=== PATIENT | female | born 1950 | race Caucasian/White ===

== ENCOUNTER 2018-11-22 22:43 | Observation (INO) ==
[2018-11-22] MEDS ORDERED: ONDANSETRON 4 MG/2 ML VIAL ONE (23:03)
[2018-11-22] MEDS ORDERED: ONDANSETRON 4 MG/2 ML VIAL IM STA (23:09)
[2018-11-22] MEDS ORDERED: SODIUM CHLORIDE 0.9% 1,000 ML IV STA ×2 (23:09→23:15)
[2018-11-22] MEDS ORDERED: ONDANSETRON 4 MG/2 ML VIAL IV STA (23:11)
[2018-11-22 23:44] LABS: Basophils # 0.1 10*3/uL (0.0-0.2); Basophils % 0.7 % (0.0-0.8); Eosinophils # 0.1 10*3/uL (0.0-0.87); Eosinophils % 1.2 % (0.00-10.9); Hematocrit 42.5 VOL% (35.7-47.0); Hemoglobin 13.4 GM/DL (12.0-16.0); Immature Granulocytes % 0.4 %; Immature Granulocytes Absolute 0.04 #; Lymphocytes # 1.6 10*3/uL (1.4-4.0); Lymphocytes % 16.4 % (21.3-54.2); Mean Corpuscular HGB Conc 31.5 GM/DL (32-36); Mean Corpuscular Volume 82.4 FL (87-102); Monocytes % 6.4 % (1.7-12.7); Neutrophils % 74.9 % (38.7-73.9); Platelet Count 229 T/CUMM (130-400); Red Blood Count 5.16 MC/CUMM (3.8-5.5); Red Cell Distribution Width 14.1 % (9.3-17.3); White Blood Count 9.8 T/CUMM (4-12)
[2018-11-23 00:15] LABS: Alanine Aminotransferase 18 U/L (13-56); Albumin 3.8 G/DL (3.4-5.0); Alkaline Phosphatase 147 U/L (45-117); Aspartate Amino Transferase 24 U/L (0-37); Blood Urea Nitrogen 13 MG/DL (7-18); Calcium 9.2 MG/DL (8.5-10.1); Glucose 266 MG/DL (74-106); Osmolality,Calculated 287.4 MOS/KG (273-304); Total Protein 7.7 G/DL (6.4-8.3)
[2018-11-23 00:31] LABS: Apearance,Urine CLOUDY (Clear); Bacteria,Urine Occasional /HPF (Few); Bilirubin,Urine Negative (Negative); Blood, Urine Small mg/dL (Negative); Glucose,Urine (UA) >=500 mg/dL (Negative); Hyaline Casts,Urine 291 /LPF (0-3); Ketones,Urine Negative (Negative); Mucus,Urine Moderate /LPF (Occasional); Nitrite,Urine Negative (Negative); Protein,Urine 100 MG/DL; RBC,Urine 5 /HPF (0-4); Squamous Epithelial Cell,Urine Occasional /HPF (0-10); Urine Color Yellow (Yellow); Urine Specific Gravity 1.016 (1.001-1.035); Urine Urobilinogen < 2.0 EU/DL (0.2-1.0); WBC,Urine 5 /HPF (0-6)
[2018-11-23] MEDS ORDERED: DEXTROSE 50% 25 GM/50 ML VIAL IV PRN (00:39)
[2018-11-23] MEDS ORDERED: ONDANSETRON 4 MG/2 ML VIAL IV PRN (00:39)
[2018-11-23] MEDS ORDERED: GLUCAGON 1 MG VIAL IM PRN (00:39)
[2018-11-23] MEDS: DEXTROSE 5% NACL 0.9% 1,000 ML IV SCH ×2 (02:01→09:58)
[2018-11-23] MEDS ORDERED: MECLIZINE 25 MG TABLET PO PRN (07:53)
[2018-11-23 08:54] LABS: Calcium 7.8 MG/DL (8.5-10.1); Osmolality,Calculated 286.1 MOS/KG (273-304)
[2018-11-23] MEDS: LOSARTAN 50 MG TABLET PO SCH ×2 (08:54→20:53)
[2018-11-23] MEDS: ASPIRIN EC 81 MG TABLET PO SCH (08:54)
[2018-11-23] MEDS: PANTOPRAZOLE 40 MG TABLET PO SCH (08:54)
[2018-11-23] MEDS: ROSUVASTATIN 20 MG TABLET PO SCH (08:54)
[2018-11-23] MEDS: FUROSEMIDE 20 MG TABLET PO SCH (08:54)
[2018-11-23] MEDS: DOCUSATE SODIUM 100 MG CAPSULE PO SCH ×2 (08:54→20:52)
[2018-11-23] MEDS: METOCLOPRAMIDE 10 MG TABLET PO SCH ×4 (08:54→20:52)
[2018-11-23] MEDS ORDERED: PANTOPRAZOLE 40 MG VIAL IV SCH (09:00)
[2018-11-23] MEDS ORDERED: GABAPENTIN 300 MG CAPSULE PO SCH (09:00)
[2018-11-23] MEDS: ACETAMINOPHEN 325 MG TABLET PO PRN (09:59)
[2018-11-23] MEDS: INSULIN LISPRO 100 UNIT/ML SUBCUT SCH ×3 (11:28→20:51)
[2018-11-23] MEDS ORDERED: INSULIN ASPART PROTAMINE/ASPART 70/30 100 UNIT/ML SUBCUT SCH (11:30)
[2018-11-23] MEDS: GABAPENTIN 300 MG CAPSULE PO SCH (12:08)
[2018-11-23] MEDS: SODIUM CHLORIDE 0.9% 1,000 ML IV SCH (17:17)
[2018-11-23] MEDS: CILOSTAZOL 50 MG TABLET PO SCH (17:18)
[2018-11-23] MEDS: INSULIN GLARGINE 100 UNIT/ML SUBCUT SCH (20:52)
[2018-11-23] MEDS: GABAPENTIN 600 MG TABLET PO SCH (20:53)
[2018-11-23] MEDS: DOXEPIN 10 MG CAPSULE PO SCH (20:53)
[2018-11-23] MEDS: rOPINIRole 1 MG TABLET PO SCH (20:53)
[2018-11-24] MEDS: SODIUM CHLORIDE 0.9% 1,000 ML IV SCH ×2 (00:38→12:29)
[2018-11-24] MEDS: INSULIN LISPRO 100 UNIT/ML SUBCUT SCH ×4 (09:27→22:59)
[2018-11-24] MEDS: ROSUVASTATIN 20 MG TABLET PO SCH (09:27)
[2018-11-24] MEDS: LOSARTAN 50 MG TABLET PO SCH ×2 (09:28→23:00)
[2018-11-24] MEDS: DOCUSATE SODIUM 100 MG CAPSULE PO SCH ×2 (09:28→23:00)
[2018-11-24] MEDS: PANTOPRAZOLE 40 MG TABLET PO SCH (09:28)
[2018-11-24] MEDS: FUROSEMIDE 20 MG TABLET PO SCH (09:28)
[2018-11-24] MEDS: CILOSTAZOL 50 MG TABLET PO SCH ×2 (09:28→16:30)
[2018-11-24] MEDS: ASPIRIN EC 81 MG TABLET PO SCH (09:28)
[2018-11-24] MEDS: METOCLOPRAMIDE 10 MG TABLET PO SCH ×4 (09:28→22:59)
[2018-11-24] MEDS: INSULIN ASPART PROTAMINE/ASPART 70/30 100 UNIT/ML SUBCUT SCH ×3 (11:34→16:30)
[2018-11-24] MEDS: GABAPENTIN 300 MG CAPSULE PO SCH (12:29)
[2018-11-24] MEDS: DOXEPIN 10 MG CAPSULE PO SCH (22:58)
[2018-11-24] MEDS: rOPINIRole 1 MG TABLET PO SCH (22:58)
[2018-11-24] MEDS: GABAPENTIN 600 MG TABLET PO SCH (22:59)
[2018-11-24] MEDS: INSULIN GLARGINE 100 UNIT/ML SUBCUT SCH (22:59)
[2018-11-24] MEDS: ACETAMINOPHEN 325 MG TABLET PO PRN (23:00)
[2018-11-25] MEDS: ROSUVASTATIN 20 MG TABLET PO SCH (09:29)
[2018-11-25] MEDS: CILOSTAZOL 50 MG TABLET PO SCH ×2 (09:29→16:42)
[2018-11-25] MEDS: PANTOPRAZOLE 40 MG TABLET PO SCH (09:29)
[2018-11-25] MEDS: ASPIRIN EC 81 MG TABLET PO SCH (09:29)
[2018-11-25] MEDS: FUROSEMIDE 20 MG TABLET PO SCH (09:29)
[2018-11-25] MEDS: METOCLOPRAMIDE 10 MG TABLET PO SCH ×3 (09:30→16:42)
[2018-11-25] MEDS: INSULIN ASPART PROTAMINE/ASPART 70/30 100 UNIT/ML SUBCUT SCH ×3 (09:30→16:42)
[2018-11-25] MEDS: DOCUSATE SODIUM 100 MG CAPSULE PO SCH (09:30)
[2018-11-25] MEDS: LOSARTAN 50 MG TABLET PO SCH (09:30)
[2018-11-25] MEDS: INSULIN LISPRO 100 UNIT/ML SUBCUT SCH ×3 (09:30→16:42)
[2018-11-25] MEDS ORDERED: LINACLOTIDE 145 MCG CAPSULE PO SCH (11:30)
[2018-11-25] MEDS: GABAPENTIN 300 MG CAPSULE PO SCH (12:45)
[2018-11-25 16:51] VITALS: BP 104/50
== END 2018-11-25 17:03 | disposition home or self-care (01) ==
LOC: EDBD → EDUNIT# → N.ED 22:43 → N.EDINP 22:43 → N.5E 11-23 00:59
PROVIDERS: ADMIT Family Medicine; ATTEND Family Medicine

== ENCOUNTER 2019-04-10 23:00 | Inpatient (IN) ==
[2019-04-11] MEDS ORDERED: SODIUM CHLORIDE 0.9% 500 ML IV STA (00:27)
[2019-04-11] MEDS ORDERED: ONDANSETRON 4 MG/2 ML VIAL IV ONE (00:27)
[2019-04-11 01:20] LABS: Basophils # 0.1 10*3/uL (0.0-0.2); Basophils % 0.7 % (0.0-0.8); Eosinophils # 0.1 10*3/uL (0.0-0.87); Eosinophils % 0.6 % (0.00-10.9); Hematocrit 44.4 VOL% (35.7-47.0); Hemoglobin 13.9 GM/DL (12.0-16.0); Immature Granulocytes % 0.7 %; Immature Granulocytes Absolute 0.07 #; Lymphocytes # 1.2 10*3/uL (1.4-4.0); Lymphocytes % 12.7 % (21.3-54.2); Mean Corpuscular HGB Conc 31.3 GM/DL (32-36); Mean Corpuscular Volume 79.1 FL (87-102); Mean Platelet Volume 10.9 FL (9.6-12.0); Monocytes % 4.9 % (1.7-12.7); Neutrophils % 80.4 % (38.7-73.9); Platelet Count 191 T/CUMM (130-400); Red Blood Count 5.61 MC/CUMM (3.8-5.5); Red Cell Distribution Width 14.5 % (9.3-17.3); White Blood Count 9.3 T/CUMM (4-12)
[2019-04-11 01:37] LABS: Bilirubin,Total 0.8 MG/DL (0.2-1.0); Calcium 9.4 MG/DL (8.5-10.1); Osmolality,Calculated 288.8 MOS/KG (273-304); Total Protein 8.2 G/DL (6.4-8.3)
[2019-04-11] MEDS ORDERED: MAGNESIUM SULF RIDER 2 GM in PREMIX 1 EACH IV STA (01:53)
[2019-04-11] MEDS ORDERED: cefTRIAXone 1,000 MG in SODIUM CHLORIDE 0.9% 100 ML IV STA (02:21)
[2019-04-11 04:02] LABS: Apearance,Urine Slightly Hazy (Clear); Bilirubin,Urine Negative (Negative); Blood, Urine Small mg/dL (Negative); Glucose,Urine (UA) >=500 mg/dL (Negative); Ketones,Urine 80 mg/dL (Negative); Mucus,Urine Occasional /LPF (Occasional); Nitrite,Urine Positive (Negative); Protein,Urine Negative; RBC,Urine 4 /HPF (0-4); Squamous Epithelial Cell,Urine Occasional /HPF (0-10); Urine Color Yellow (Yellow); Urine Specific Gravity 1.023 (1.001-1.035); Urine Urobilinogen < 2.0 EU/DL (0.2-1.0); WBC,Urine 6 /HPF (0-6)
[2019-04-11] MEDS ORDERED: DEXTROSE 10% 250 ML BAG IV PRN (04:10)
[2019-04-11] MEDS ORDERED: GLUCAGON 1 MG VIAL IM PRN (04:10)
[2019-04-11] MEDS: SODIUM CHLORIDE 0.9% 1,000 ML IV SCH ×3 (04:47→22:07)
[2019-04-11] MEDS ORDERED: INFLUENZA VIRUS VACCINE 0.5 ML SYRINGE IM ONE (05:10)
[2019-04-11] MEDS ORDERED: PNEUMOCOCCAL VACCINE (13 VALENT) 0.5 ML SYRINGE IM ONE (05:12)
[2019-04-11] MEDS ORDERED: INSULIN REGULAR 100 UNIT/ML SUBCUT SCH (07:30)
[2019-04-11] MEDS: ONDANSETRON 4 MG/2 ML VIAL IV PRN (08:49)
[2019-04-11] MEDS: ENOXAPARIN 40 MG/0.4 ML SYRINGE SUBCUT SCH (08:49)
[2019-04-11] MEDS: PANTOPRAZOLE 40 MG TABLET PO SCH (08:52)
[2019-04-11] MEDS: DOCUSATE SODIUM 100 MG CAPSULE PO SCH ×2 (08:52→21:15)
[2019-04-11] MEDS ORDERED: tiZANidine 4 MG TABLET PO PRN (09:30)
[2019-04-11] MEDS: LINACLOTIDE 145 MCG CAPSULE PO SCH (10:06)
[2019-04-11] MEDS: CLOPIDOGREL 75 MG TABLET PO SCH (10:07)
[2019-04-11] MEDS: FUROSEMIDE 20 MG TABLET PO SCH (10:07)
[2019-04-11] MEDS: ASPIRIN EC 81 MG TABLET PO SCH (10:07)
[2019-04-11] MEDS: atenoloL 50 MG TABLET PO SCH (10:07)
[2019-04-11] MEDS: GABAPENTIN 300 MG CAPSULE PO SCH ×2 (10:07→15:27)
[2019-04-11] MEDS: INSULIN LISPRO 100 UNIT/ML SUBCUT SCH ×5 (12:18→22:09)
[2019-04-11] MEDS: cilostazoL 50 MG TABLET PO SCH (17:23)
[2019-04-11] MEDS: rOPINIRole 1 MG TABLET PO SCH (21:15)
[2019-04-11] MEDS: SIMVASTATIN 40 MG TABLET PO SCH (21:15)
[2019-04-12 05:36] LABS: Basophils # 0.1 10*3/uL (0.0-0.2); Basophils % 0.8 % (0.0-0.8); Eosinophils # 0.2 10*3/uL (0.0-0.87); Eosinophils % 2.7 % (0.00-10.9); Hematocrit 35.2 VOL% (35.7-47.0); Hemoglobin 10.7 GM/DL (12.0-16.0); Immature Granulocytes % 0.5 %; Immature Granulocytes Absolute 0.03 #; Lymphocytes # 1.4 10*3/uL (1.4-4.0); Lymphocytes % 22.4 % (21.3-54.2); Mean Corpuscular HGB Conc 30.4 GM/DL (32-36); Mean Corpuscular Volume 80.7 FL (87-102); Mean Platelet Volume 11.2 FL (9.6-12.0); Monocytes % 7.3 % (1.7-12.7); Neutrophils % 66.3 % (38.7-73.9); Platelet Count 170 T/CUMM (130-400); Red Blood Count 4.36 MC/CUMM (3.8-5.5); Red Cell Distribution Width 14.6 % (9.3-17.3); White Blood Count 6.3 T/CUMM (4-12)
[2019-04-12 05:59] LABS: Alanine Aminotransferase 18 U/L (13-56); Albumin 3.1 G/DL (3.4-5.0); Alkaline Phosphatase 103 U/L (45-117); Aspartate Amino Transferase 19 U/L (0-37); Bilirubin,Total < 0.39 MG/DL (0.2-1.0); Blood Urea Nitrogen 16 MG/DL (7-18); Calcium 7.9 MG/DL (8.5-10.1); Estimated Glom Filtration Rate 61 ML/MIN; Glucose 288 MG/DL (74-106); Osmolality,Calculated 294.1 MOS/KG (273-304); Total Protein 6.3 G/DL (6.4-8.3)
[2019-04-12] MEDS: SODIUM CHLORIDE 0.9% 1,000 ML IV SCH ×2 (06:06→13:39)
[2019-04-12] MEDS: LINACLOTIDE 145 MCG CAPSULE PO SCH (06:07)
[2019-04-12] MEDS: ASPIRIN EC 81 MG TABLET PO SCH (08:55)
[2019-04-12] MEDS: FUROSEMIDE 20 MG TABLET PO SCH (08:55)
[2019-04-12] MEDS: PANTOPRAZOLE 40 MG TABLET PO SCH (08:55)
[2019-04-12] MEDS: cilostazoL 50 MG TABLET PO SCH ×2 (08:55→16:27)
[2019-04-12] MEDS: atenoloL 50 MG TABLET PO SCH (08:55)
[2019-04-12] MEDS: ENOXAPARIN 40 MG/0.4 ML SYRINGE SUBCUT SCH (08:56)
[2019-04-12] MEDS: CLOPIDOGREL 75 MG TABLET PO SCH (08:56)
[2019-04-12] MEDS: DOCUSATE SODIUM 100 MG CAPSULE PO SCH ×2 (08:56→20:40)
[2019-04-12] MEDS: GABAPENTIN 300 MG CAPSULE PO SCH ×2 (08:56→16:28)
[2019-04-12] MEDS: INSULIN LISPRO 100 UNIT/ML SUBCUT SCH ×7 (08:58→20:40)
[2019-04-12] MEDS: ACETAMINOPHEN 325 MG TABLET PO PRN (15:30)
[2019-04-12] MEDS: INSULIN GLARGINE 100 UNIT/ML SUBCUT SCH (16:29)
[2019-04-12] MEDS: cefTRIAXone 1,000 MG in SYRINGE 1 EACH IV SCH (16:31)
[2019-04-12] MEDS: SIMVASTATIN 40 MG TABLET PO SCH (20:40)
[2019-04-12] MEDS: rOPINIRole 1 MG TABLET PO SCH (20:40)
[2019-04-13] MEDS: ACETAMINOPHEN 325 MG TABLET PO PRN (01:31)
[2019-04-13] MEDS: SODIUM CHLORIDE 0.9% 1,000 ML IV SCH (05:41)
[2019-04-13] MEDS: LINACLOTIDE 145 MCG CAPSULE PO SCH (06:06)
[2019-04-13] MEDS: DOCUSATE SODIUM 100 MG CAPSULE PO SCH ×2 (08:44→20:46)
[2019-04-13] MEDS: CLOPIDOGREL 75 MG TABLET PO SCH (08:44)
[2019-04-13] MEDS: ASPIRIN EC 81 MG TABLET PO SCH (08:44)
[2019-04-13] MEDS: FUROSEMIDE 20 MG TABLET PO SCH (08:44)
[2019-04-13] MEDS: atenoloL 50 MG TABLET PO SCH (08:44)
[2019-04-13] MEDS: INSULIN GLARGINE 100 UNIT/ML SUBCUT SCH (08:46)
[2019-04-13] MEDS: INSULIN LISPRO 100 UNIT/ML SUBCUT SCH ×7 (08:46→20:46)
[2019-04-13] MEDS: cefTRIAXone 1,000 MG in SYRINGE 1 EACH IV SCH (08:49)
[2019-04-13] MEDS: cilostazoL 50 MG TABLET PO SCH ×2 (08:51→16:43)
[2019-04-13] MEDS: PANTOPRAZOLE 40 MG TABLET PO SCH (09:23)
[2019-04-13] MEDS: GABAPENTIN 300 MG CAPSULE PO SCH ×2 (09:23→16:43)
[2019-04-13] MEDS: ENOXAPARIN 40 MG/0.4 ML SYRINGE SUBCUT SCH (09:24)
[2019-04-13] MEDS ORDERED: ALUM/MAG/SIMETH/LIDO VISC 1:1 30 ML BOTTLE PO ONE (10:52)
[2019-04-13] MEDS: SUCRALFATE 1 GM/10 ML UDCUP PO SCH ×3 (11:49→20:46)
[2019-04-13] MEDS: rOPINIRole 1 MG TABLET PO SCH (20:46)
[2019-04-13] MEDS: SIMVASTATIN 40 MG TABLET PO SCH (20:48)
[2019-04-14] MEDS: SODIUM CHLORIDE 0.9% 1,000 ML IV SCH (02:00)
[2019-04-14] MEDS: ONDANSETRON 4 MG/2 ML VIAL IV PRN ×2 (04:38→10:43)
[2019-04-14] MEDS: LINACLOTIDE 145 MCG CAPSULE PO SCH (06:31)
[2019-04-14] MEDS: INSULIN GLARGINE 100 UNIT/ML SUBCUT SCH (10:23)
[2019-04-14] MEDS: ACETAMINOPHEN 325 MG TABLET PO PRN (10:23)
[2019-04-14] MEDS: INSULIN LISPRO 100 UNIT/ML SUBCUT SCH ×4 (10:23→13:13)
[2019-04-14] MEDS: ENOXAPARIN 40 MG/0.4 ML SYRINGE SUBCUT SCH (10:24)
[2019-04-14] MEDS: CLOPIDOGREL 75 MG TABLET PO SCH (10:25)
[2019-04-14] MEDS: DOCUSATE SODIUM 100 MG CAPSULE PO SCH (10:25)
[2019-04-14] MEDS: atenoloL 50 MG TABLET PO SCH (10:25)
[2019-04-14] MEDS: FUROSEMIDE 20 MG TABLET PO SCH (10:25)
[2019-04-14] MEDS: SUCRALFATE 1 GM/10 ML UDCUP PO SCH ×2 (10:25→13:12)
[2019-04-14] MEDS: GABAPENTIN 300 MG CAPSULE PO SCH (10:25)
[2019-04-14] MEDS: ASPIRIN EC 81 MG TABLET PO SCH (10:25)
[2019-04-14] MEDS: cilostazoL 50 MG TABLET PO SCH (10:25)
[2019-04-14] MEDS: PANTOPRAZOLE 40 MG TABLET PO SCH (10:25)
[2019-04-14] MEDS: cefTRIAXone 1,000 MG in SYRINGE 1 EACH IV SCH (10:26)
[2019-04-14 12:10] VITALS: BP 137/52
[2019-04-14] MEDS ORDERED: traMADol 50 MG TABLET PO ONE (12:39)
== END 2019-04-14 15:47 | disposition home or self-care (01) | DRG 690 ==
LOC: N.EDINP 23:00 → N.ED 23:00 → N.2E 04-11 04:39
PROVIDERS: ADMIT Family Medicine; ATTEND Family Medicine